=== PATIENT | female | born 1995 | race Caucasian/White ===

== ENCOUNTER 2018-06-29 08:13 | Emergency (ER) | payer BC ==
[2018-06-29 09:52] LABS: APPEARANCE,URINE CLEAR; BILIRUBIN,URINE NEGATIVE (NEGATIVE); COLOR,URINE STRAW; GLUCOSE, URINE NEGATIVE (NEGATIVE); KETONES,URINE NEGATIVE (NEGATIVE); LEUKOCYTE ESTERASE,URINE NEGATIVE (NEGATIVE); NITRITE,URINE NEGATIVE (NEGATIVE); PROTEIN,URINE NEGATIVE (NEGATIVE); URINE SPECIFIC GRAVITY 1.008; UROBILINOGEN,URINE NEGATIVE mg/dL (<2.0)
[2018-06-29 10:20] LABS: ABSOLUTE BASOPHILS # (AUTO) 0.1 10^3/uL (0.0-0.2); ABSOLUTE EOSINOPHILS # (AUTO) 2.1 10^3/uL (0.0-0.6); ABSOLUTE LYMPHOCYTES (AUTO) 1.9 10^3/uL (0.5-4.7); ABSOLUTE MONOCYTES (AUTO) 1.1 10^3/uL (0.1-1.4); ABSOLUTE NEUT (AUTO) 7.8 10^3/uL (1.7-8.2); BASOPHILS % (AUTO) 0.5 % (0-2); EOSINOPHILS % (AUTO) 15.8 % (0-6); HEMATOCRIT 40.5 % (36.0-47.0); MEAN CORPUSCULAR HEMOGLOBIN 31.3 pg (27.0-33.4); MEAN CORPUSCULAR HGB CONC 34.5 g/dL (32.0-36.0); MEAN CORPUSCULAR VOLUME 91 fl (80-97); MONOCYTES % (AUTO) 8.5 % (3-13); PLATELET COUNT 277 10^3/uL (150-450); RED BLOOD COUNT 4.46 10^6/uL (3.72-5.28); RED CELL DISTRIBUTION WIDTH 12.2 % (11.5-14.0); SEGMENTED NEUTROPHILS % (AUTO) 60.2 % (42-78); TOTAL CELLS COUNTED % (AUTO) 100 %
[2018-06-29 10:50] LABS: FREE T4 (FREE THYROXINE) 1.26 ng/dL (0.78-2.19)
[2018-06-29 10:51] LABS: FREE T3 5.1 pg/mL (2.77-5.27)
[2018-06-29 11:04] LABS: THYROID STIMULATING HORMONE 1.55 uIU/mL (0.47-4.68)
--- NOTE | 2018-06-29 11:39 | ER Document Report ---
ED General - General Chief Complaint: Abdominal Pain Stated Complaint: ABDOMINAL PAIN Time Seen by Provider: 06/29/18 08:43 Mode of Arrival: Ambulatory Information source: Patient Notes: Patient is an otherwise healthy 23-year-old female who presents emergency department with multiple complaints. Patient reports cough, congestion that is been ongoing for 1 month. Patient also reports lethargy times 1 month. Patient reports left lower quadrant pain times 1 week, states she believes this is from all the coughing she has been doing. Patient also reports mild nausea and dizziness today. Patient reports approximately 10 days ago she was seen in urgent care at which time she had a negative strep and negative flu. She was placed on steroids and given codeine cough syrup. She reports these did not help her symptoms whatsoever. Patient denies any past medical history, reports Orth O surgery and oral surgery. Does not take any daily medications. Denies any fevers. TRAVEL OUTSIDE OF THE [place] IN LAST 30 DAYS: No - Related Data Allergies/Adverse Reactions: No Known Allergies Allergy (Verified 06/29/18 08:13) Past Medical History - General Information source: Patient - Social History Smoking Status: Never Smoker Chew tobacco use (# tins/day): No Frequency of alcohol use: None Drug Abuse: None Family History: Reviewed & Not Pertinent Patient has suicidal ideation: No Patient has homicidal ideation: No - Medical History Medical History: Negative Renal/ Medical History: Denies: Hx Peritoneal Dialysis Surgical Hx: Negative - Immunizations Immunizations up to date: Yes Review of Systems - Review of Systems Constitutional: See HPI EENT: Nose congestion. denies: Throat pain Cardiovascular: No symptoms reported Respiratory: Cough Gastrointestinal: See HPI Genitourinary: No symptoms reported Female Genitourinary: No symptoms reported Musculoskeletal: No symptoms reported Skin: No symptoms reported Hematologic/Lymphatic: No symptoms reported Neurological/Psychological: No symptoms reported Physical Exam - Vital signs Vitals: Temp Pulse Resp BP Pulse Ox 98.0 F 78 16 130/84 H 99 06/29/18 08:18 06/29/18 08:18 06/29/18 08:18 06/29/18 08:18 06/29/18 08:18 - Notes Notes: PHYSICAL EXAMINATION: GENERAL: Well-appearing, well-nourished and in no acute distress. HEAD: Atraumatic, normocephalic. EYES: Pupils equal round and reactive to light, extraocular movements intact, conjunctiva are normal. ENT: Nares patent, oropharynx clear without exudates. Moist mucous membranes. NECK: Normal range of motion, supple without lymphadenopathy LUNGS: Breath sounds clear to auscultation bilaterally and equal. No wheezes rales or rhonchi. HEART: Regular rate and rhythm without murmurs ABDOMEN: Soft, nontender, nondistended abdomen. No guarding, no rebound. No masses appreciated. Female : deferred Musculoskeletal: Normal range of motion, no pitting or edema. No cyanosis. NEUROLOGICAL: Cranial nerves grossly intact. Normal speech, normal gait. Normal sensory, motor exams PSYCH: Normal mood, normal affect. SKIN: Warm, Dry, normal turgor, no rashes or lesions noted. Course - Re-evaluation Re-evalutation: Patient's abdomen is soft, nontender with no guarding and no rebound at the time of my evaluation. Her vital signs are within normal limits. Lab workup today was unremarkable other than a mildly elevated white blood count at 13.0. Thyroid panel is unremarkable. [place] test is negative. Urinalysis with no signs of infection. Patient's physical examination is also unremarkable. No indication at this time for further testing or imaging. Likely viral illness. Patient agrees to follow-up and establish primary care. - Vital Signs Vital signs: Temp Pulse Resp BP Pulse Ox 98.5 F 78 16 119/79 100 06/29/18 12:06 06/29/18 08:18 06/29/18 08:18 06/29/18 12:01 06/29/18 12:06 - Laboratory Result Diagrams: 06/29/18 10:00 06/29/18 11:20 Laboratory results interpreted by me: 06/29/18 06/29/18 10:00 11:20 WBC 13.0 H Eosinophils % 15.8 H Absolute Eosinophils 2.1 H AST 110 H ALT 120 H Discharge - Discharge Clinical Impression: Viral illness Condition: Stable Disposition: HOME, SELF-CARE Additional Instructions: As discussed, your workup today was unremarkable. You were given a copy of all lab results. Please take Zofran as needed for nausea. You may use either ibuprofen or Tylenol for any pain. Please call and schedule appointment with primary care. Return to the emergency department with any new or worsening symptoms to include worsening abdominal pain, development of fever, shortness of breath, syncope or any other symptom that is concerning to you. We are happy to reevaluate you at any time. Prescriptions: Ondansetron HCl [Zofran 4 mg Tablet] 1 - 2 tab PO Q4H PRN #10 tablet PRN Reason: Forms: Return to Work
[2018-06-29 11:46] LABS: ALANINE AMINOTRANSFERASE 120 U/L (9-52); ALBUMIN 4.2 g/dL (3.5-5.0); ALKALINE PHOSPHATASE 65 U/L (38-126); ANION GAP 9 (5-19); ASPARTATE AMINO TRANSFERASE 110 U/L (14-36); BILIRUBIN,DIRECT 0.2 mg/dL (0.0-0.4); BILIRUBIN,TOTAL 0.8 mg/dL (0.2-1.3); BLOOD UREA NITROGEN 11 mg/dL (7-20); CARBON DIOXIDE 27 mmol/L (22-30); CHLORIDE 104 mmol/L (98-107); GLUCOSE 100 mg/dL (75-110); LIPASE 39.5 U/L (23-300); POTASSIUM 4.4 mmol/L (3.6-5.0); SODIUM 139.5 mmol/L (137-145); TOTAL PROTEIN 7.5 g/dL (6.3-8.2)
[2018-06-29] MEDS ORDERED: ONDANSETRON HCL INJ/PF 4 MG/2 ML SDV IV ONE (12:54)
[2018-06-29 12:59] VITALS: BP 119/79
== END 2018-06-29 14:24 | disposition home or self-care (01) ==
LOC: ER 08:13
DX: R05 Cough (principal); B34.9 Viral infection, unspecified; R10.32 Left lower quadrant pain
CPT/HCPCS: 99284; 96374; 36415; 84439; 83690; 84443; 84703; 85025; 86308; 80053; 81001; 84481; J2405

== ENCOUNTER → 2020-04-27 | Outpatient (CLI) | payer BC ==
[~2020-04-27] MED LIST: COVID-19 VACCINE (PFIZER)/PF 30 MCG/0.3 ML VIAL IM ONE; EPINEPHRINE INJ/PF 1 MG/1 ML AMPULE IM PRN
== END ==
LOC: EMPHEALTH 07:15
PROVIDERS: ATTEND Internal Medicine
DX: Z23 Encounter for immunization (principal)
CPT/HCPCS: 91300